=== PATIENT | male | born 1990 | race Caucasian/White ===

== ENCOUNTER 2021-11-11 13:08 | Emergency (ER) | payer MEDICAID ==
[~2021-11-11] VITALS: Ht 167.6 cm; Wt 72.7 kg
[~2021-11-11 13:08] MED LIST: MAAL30 PO
[2021-11-11] MEDS ORDERED: CORTSOL AS ×2 (13:46→14:06)
[2021-11-11 15:19] VITALS: BP 112/60
== END 2021-11-11 15:24 | disposition home or self-care (01) ==
LOC: EMS 13:08
DX: H60.92 Unspecified otitis externa, left ear (principal)
CPT/HCPCS: 99283; Z7502

== ENCOUNTER 2024-10-13 20:24 | Emergency (ER) | payer SELFPAY ==
[~2024-10-13] VITALS: Ht 167.6 cm; Wt 81.8 kg
[~2024-10-13 20:24] MED LIST changes: +CORTSOL AS; -MAAL30 PO
[2024-10-13 20:37] VITALS: BP 115/75; PULSE 63; RESP 18; TEMP 98.4; O2SAT 99
[2024-10-13 20:56] LABS: EOSINOPHILS % (AUTO) 7.9 % (1.0-6.0); HEMATOCRIT 44.7 % (41-53); HEMOGLOBIN 14.6 g/dL (13.5-17.5); LYMPHOCYTES # (AUTO) 2.5 K/uL (1.0-4.8); LYMPHOCYTES % (AUTO) 33.9 % (22.0-44.0); MEAN CORPUSCULAR HEMOGLOBIN 26.3 pg (26.0-34.0); MEAN CORPUSCULAR HGB CONC 32.7 G/dL (31.0-37.0); MEAN CORPUSCULAR VOLUME 80 fL (80-100); MONOCYTES # (AUTO) 0.5 K/uL (0.1-1.0); MONOCYTES % (AUTO) 6.8 % (2.0-9.0); NEUTROPHILS # (AUTO) 3.8 K/uL (1.8-7.7); NEUTROPHILS % (AUTO) 50.4 % (40.0-70.0); PLATELET COUNT (AUTO) 289 K/uL (150-450); RED BLOOD CELL COUNT(AUTO) 5.56 MIL/uL (4.50-5.90); RED CELL DISTRIBUTION WIDTH 14.3 % (11.5-14.5); WHITE BLOOD COUNT (AUTO) 7.5 K/uL (4.5-11.0)
[2024-10-13 21:05] LABS: CALCIUM, TOTAL 8.7 mg/dL (8.8-10.5); CREATININE 1.41 mg/dL (0.60-1.30); POTASSIUM 4.2 mmol/L (3.5-5.1)
[2024-10-13] MEDS: ONDANSETRON 4 MG TABLET PO ONE (21:05)
[2024-10-13] MEDS: PB/HYOSCY/ATR/SCOP/LIDO/MAALOX 55 ML BOTTLE PO ONE (21:05)
[2024-10-13] MEDS: OMEPRAZOLE 20 MG CAPSULE PO ONE (21:05)
[2024-10-13 21:09] LABS: ALBUMIN 3.7 g/dL (3.4-5.0); BILIRUBIN,DIRECT 0.1 mg/dL (0.00-0.20); BILIRUBIN,TOTAL 0.4 mg/dL (0.1-1.0); TOTAL PROTEIN, SERUM 7.7 g/dL (6.4-8.2)
[2024-10-13] MEDS ORDERED: MAG30ORA11 PO (21:41)
[2024-10-13] MEDS ORDERED: OMEP-148 PO (21:41)
== END 2024-10-13 22:03 | disposition home or self-care (01) ==
LOC: EMS 20:24
DX: K21.9 Gastro-esophageal reflux disease without esophagitis (principal); R10.13 Epigastric pain; Z90.49 Acquired absence of other specified parts of digestive tract; Z79.899 Other long term (current) drug therapy
CPT/HCPCS: 99284; 80048; 80076; 83690; 85025; 36415; Q0162